=== PATIENT | female | born 1990 | race Hispanic/Latino ===

== ENCOUNTER 2017-08-07 19:52 | Emergency (ER) | payer SELFPAY ==
[~2017-08-07] VITALS: Ht 147.3 cm; Wt 51.9 kg
[2017-08-07 20:35] LABS: ADD MIUA? YES; BILIRUBIN NEGATIVE; BLOOD NEGATIVE; COLOR YELLOW ((YELLOW)); GLUCOSE (STRIP) NEGATIVE; KETONES NEGATIVE; LEUKOCYTES LARGE; NITRITE NEGATIVE; PROTEIN (STRIP) NEGATIVE; SPECIFIC GRAVITY 1.017 (1.000-1.030); UROBILINOGEN 0.2 MG/DL (0.2-1.0)
[2017-08-07 20:40] LABS: BACTERIA RARE /HPF; EPITHELIAL CELLS 1+ /HPF; MUCUS TRACE /LPF; RED BLOOD CELLS 0-5 /HPF (0-5); UCUL ADDED? YES
[2017-08-07 20:57] LABS: HEMATOCRIT 38.1 % (36.0-46.0); MCH 26.1 PG (29.0-34.0); MCHC 33.9 G/DL (30.0-36.0); MCV 77.1 FL (83-99); MEAN PLAT.VOLUME 10.6 uM^3 (9.5-12.4); PLATELET COUNT 238 K/uL (156-360); RBC DIS.WIDTH-CV 13.4 % (11.8-14.6); RBC DIS.WIDTH-SD 37.4 % (39-53); RED BLOOD COUNT 4.94 M/uL (3.80-5.20); WHITE BLOOD COUNT 10.6 K/uL (4.1-10.2)
[2017-08-07 21:05] LABS: CHLORIDE 105 mEq/L (99-109); POTASSIUM 3.4 mEq/L (3.7-5.4); SODIUM 138 mEq/L (136-147)
[2017-08-07 21:08] LABS: GLUCOSE 98 mg/dL (70-99)
[2017-08-07 21:09] LABS: ANION GAP 12 MEQ/L (2-14)
[2017-08-07 21:10] LABS: TOTAL BILIRUBIN 0.2 mg/dL (0.0-1.0)
[2017-08-07 21:11] LABS: ALKALINE PHOSPHATASE 78 IU/L (3-129)
[2017-08-07 21:12] LABS: UREA NITROGEN (BUN) 6 mg/dL (9-23)
[2017-08-07 21:23] LABS: GFR ESTIMATE (CALCULATED) > 59 mL/min/
[2017-08-07 21:36] LABS: QUANTITATIVE HCG 141292.2 MIU/ML
[2017-08-07 22:26] LABS: TOTAL BILIRUBIN 0.2 mg/dL (0.0-1.0)
[2017-08-07 22:27] LABS: ALKALINE PHOSPHATASE 75 IU/L (3-129)
[2017-08-07 22:29] LABS: DIRECT BILIRUBIN 0.1 mg/dL (0.0-0.3)
[2017-08-07 22:30] LABS: LIPASE 15 U/L (1.0-51.0)
[2017-08-07 22:36] LABS: INTER. NORMALIZED RATIO 1.1; PROTHROMBIN TIME 12.4 SEC (10.2-12.9)
[2017-08-07 22:39] LABS: PTT 30.6 SEC (25-37)
[2017-08-08] MEDS ORDERED: MACROBID100 MG PO (00:41)
[2017-08-08] MEDS ORDERED: PRENA1 PEARL S1 EACH PO (00:44)
[2017-08-08 01:41] VITALS: BP 133/88
[2017-08-09 14:37] LABS: CHLAMYDIA TRACHOMATIS NEGATIVE; NEISSERIA GONORRHOEAE NEGATIVE
== END 2017-08-08 01:44 | disposition home or self-care (01) ==
LOC: EME 19:52
PROVIDERS: Emergency Medicine
DX: O23.41 Unspecified infection of urinary tract in pregnancy, first trimester (principal); O20.8 Other hemorrhage in early pregnancy; Z3A.10 10 weeks gestation of pregnancy
CPT/HCPCS: 76801; 80053; 80076; 81003; 83605; 83690; 84702; 85027; 85610; 85730; 87086; 87210; 87491; 87591; 99281; 99285